=== PATIENT | male | born 1960 | race African-American/Black ===

== ENCOUNTER 2016-06-14 16:14 | Inpatient (IN) | payer SELFPAY ==
[~2016-06-14] VITALS: Ht 182.9 cm; Wt 87.5 kg
[2016-06-14] MEDS ORDERED: LEVETIRACETAM (500MG) 500 MG in IV NS 0.9% 100 ML IV ONE (16:30)
[2016-06-14] MEDS ORDERED: IV SET PRIMARY PUMP SET 1 EA INFUS.SET MC ONE (16:35)
[2016-06-14 16:48] LABS: BASOPHILS # (AUTO) 0.3 /CMM (0.0-0.2); BASOPHILS % (AUTO) 4.1 % (0.0-2.0); DIFF TOTAL % 100 %; EOSINOPHILS % (AUTO) 0.1 % (0.0-6.0); HEMATOCRIT 45 % (39-51); LYMPHOCYTES # (AUTO) 1.7 /CMM (0.8-4.8); LYMPHOCYTES % (AUTO) 26.6 % (20.0-44.0); MEAN CORPUSCULAR HEMOGLOBIN 28 PG (26.0-33.0); MEAN CORPUSCULAR HGB CONC 33 g/dl (31.0-36.0); MEAN CORPUSCULAR VOLUME 85 fL (80-96); MONOCYTES # (AUTO) 0.5 /CMM (0.1-1.30); NEUTROPHILS # (AUTO) 3.7 /CMM (1.8-8.9); NEUTROPHILS % (AUTO) 61.2 % (43.0-81.0); PLATELET COUNT (AUTO) 278 /CMM (150-450); RED BLOOD CELL COUNT(AUTO) 5.32 MIL/uL (4.5-6.0); WHITE BLOOD COUNT (AUTO) 6.2 K/uL (4.3-11.0)
[2016-06-14 16:56] LABS: ANION GAP 17 (5-14); CALCIUM, SERUM 8.2 mg/dL (8.5-10.1); CARBON DIOXIDE 23 mmol/L (21-32); CHLORIDE 104 mmol/L (98-107); CREATININE 1.2 mg/dL (0.6-1.3); GFR 63 mL/min (>60); GLUCOSE 115 mg/dL (74-106); POTASSIUM 4.2 mmol/L (3.5-5.1); SODIUM SERUM 140 mmol/L (136-145); UREA NITROGEN, BLOOD 9 mg/dL (7-18)
[2016-06-14 17:00] LABS: INR 1.04 (0.87-1.13); PROTHROMBIN TIME 10.9 SECS (9.5-12.7)
[2016-06-14 17:01] LABS: ALANINE AMINOTRANSFERASE 26 U/L (12-78); ALBUMIN 3.6 g/dL (3.4-5.0); ASPARTATE AMINOTRANSFERASE 19 U/L (15-37); BILIRUBIN,DIRECT 0.1 mg/dL (0.0-0.2); BILIRUBIN,TOTAL 0.3 mg/dL (0.2-1.0); INDIRECT BILIRUBIN 0.2 mg/dL (0.0-1.1); TOTAL PROTEIN, SERUM 7.4 g/dL (6.4-8.2)
[2016-06-14 17:06] LABS: CANNABINOID, URINE POSITIVE (NEGATIVE); PHENCYCLIDINE SCREEN,URINE NEGATIVE (NEGATIVE)
[2016-06-14] MEDS ORDERED: DEXAMETHASONE SOD PHOSPHATE 4 MG/ML VIAL IV ONE (19:00)
[2016-06-14 19:33] VITALS: BP 125/70
[2016-06-14 20:00] VITALS: BP 125/70
[2016-06-14] MEDS ORDERED: LORAZEPAM INJ 2 MG/ML VIAL IV PRN (21:30)
[2016-06-14] MEDS ORDERED: HYDROCODONE/APAP 5/325MG 1 EACH TABLET PO PRN (21:30)
[2016-06-14] MEDS ORDERED: ACETAMINOPHEN 325 MG TABLET PO PRN (22:30)
[2016-06-14] MEDS ORDERED: LORAZEPAM INJ 2 MG/ML VIAL ONE (22:44)
[2016-06-14] MEDS ORDERED: LORAZEPAM INJ 2 MG/ML VIAL IV ONE (23:00)
[2016-06-15] VITALS: BP 113/61
[2016-06-15] MEDS ORDERED: methylPREDNISolone SOD SUCC 125 MG/2ML VIAL IV SCH (02:00)
[2016-06-15] MEDS ORDERED: methylPREDNISolone SOD SUCC 40 MG/ML VIAL ONE (02:19)
[2016-06-15] MEDS ORDERED: methylPREDNISolone SOD SUCC 125 MG/2ML VIAL ONE (02:20)
[2016-06-15 04:00] VITALS: BP 114/75
[2016-06-15] MEDS ORDERED: IV NS 0.9% 100 ML IV ONE (04:08)
[2016-06-15] MEDS ORDERED: IV SET PRIMARY PUMP SET 1 EA INFUS.SET MC ONE (04:08)
[2016-06-15] MEDS ORDERED: LEVETIRACETAM (500MG) 500 MG/5 ML VIAL IV ONE (04:16)
[2016-06-15] MEDS: LEVETIRACETAM (500MG) 500 MG in IV NS 0.9% 100 ML IV SCH ×2 (04:31→15:13)
[2016-06-15] MEDS ORDERED: methylPREDNISolone SOD SUCC 40 MG/ML VIAL IV SCH (07:51)
[2016-06-15 07:53] LABS: ALBUMIN 3.5 g/dL (3.4-5.0); BILIRUBIN,TOTAL 0.5 mg/dL (0.2-1.0); CALCIUM, SERUM 8.6 mg/dL (8.5-10.1); CREATININE 0.9 mg/dL (0.6-1.3); POTASSIUM 4.2 mmol/L (3.5-5.1); TOTAL PROTEIN, SERUM 7.7 g/dL (6.4-8.2)
[2016-06-15 07:59] LABS: BASOPHILS % (AUTO) 0.1 % (0.0-2.0); DIFF TOTAL % 100 %; HEMATOCRIT 45 % (39-51); HEMOGLOBIN 14.9 g/dL (13.5-17.5); LYMPHOCYTES % (AUTO) 11.9 % (20.0-44.0); MEAN CORPUSCULAR HEMOGLOBIN 28 PG (26.0-33.0); MEAN CORPUSCULAR HGB CONC 33 g/dl (31.0-36.0); MEAN CORPUSCULAR VOLUME 85 fL (80-96); MONOCYTES % (AUTO) 0.1 % (2.0-12.0); NEUTROPHILS # (AUTO) 7.3 /CMM (1.8-8.9); NEUTROPHILS % (AUTO) 87.9 % (43.0-81.0); PLATELET COUNT (AUTO) 302 /CMM (150-450); RED BLOOD CELL COUNT(AUTO) 5.33 MIL/uL (4.5-6.0); WHITE BLOOD COUNT (AUTO) 8.3 K/uL (4.3-11.0)
[2016-06-15 08:00] VITALS: BP 117/69
[2016-06-15 08:02] LABS: THYROID STIMULATING HORMONE 0.433 uIU/mL (0.358-3.74)
[2016-06-15] MEDS: PANTOPRAZOLE 40 MG VIAL IV SCH (08:56)
[2016-06-15] MEDS ORDERED: IOHEXOL-300 100 ML VIAL IV ONE (11:50)
[2016-06-15] MEDS ORDERED: CT SWABBABLE VALVE TRANS SET 1 EA INFUS.SET MC ONE (11:50)
[2016-06-15] MEDS ORDERED: IV NS 0.9% 250 ML IV ONE (11:50)
[2016-06-15 12:20] VITALS: BP 134/69
[2016-06-15 12:29] LABS: URIC ACID 6.6 mg/dL (2.6-7.2)
[2016-06-15] MEDS: methylPREDNISolone SOD SUCC 40 MG/ML VIAL IV SCH ×2 (13:32→20:45)
[2016-06-15 16:00] VITALS: BP 130/86
[2016-06-15 16:49] LABS: KETONES,URINE 1+ (NEGATIVE); LEUKOCYTE ESTERASE ,URINE NEGATIVE (NEGATIVE)
[2016-06-15 16:55] LABS: ADD UA MICROSCOPIC YES
[2016-06-15 17:52] LABS: ADD URINE CULTURE NO; RBC,URINE 0-2 /HPF (0-2); WBC,URINE 0-2 /HPF (0-3)
[2016-06-15 20:00] VITALS: BP 135/87
[2016-06-16] VITALS: BP 128/86
[2016-06-16] MEDS: methylPREDNISolone SOD SUCC 40 MG/ML VIAL IV SCH ×4 (01:00→14:26)
[2016-06-16] MEDS: LEVETIRACETAM (500MG) 500 MG in IV NS 0.9% 100 ML IV SCH (03:50)
[2016-06-16 04:00] VITALS: BP 108/67
[2016-06-16 07:18] LABS: BASOPHILS # (AUTO) 0.1 /CMM (0.0-0.2); DIFF TOTAL % 100 %; HEMATOCRIT 46 % (39-51); HEMOGLOBIN 15.3 g/dL (13.5-17.5); LYMPHOCYTES # (AUTO) 1.5 /CMM (0.8-4.8); MEAN CORPUSCULAR HEMOGLOBIN 28 PG (26.0-33.0); MEAN CORPUSCULAR HGB CONC 33 g/dl (31.0-36.0); MEAN CORPUSCULAR VOLUME 85 fL (80-96); MONOCYTES # (AUTO) 3.7 /CMM (0.1-1.30); MONOCYTES % (AUTO) 30.8 % (2.0-12.0); NEUTROPHILS # (AUTO) 6.8 /CMM (1.8-8.9); NEUTROPHILS % (AUTO) 56.2 % (43.0-81.0); PLATELET COUNT (AUTO) 315 /CMM (150-450); RED BLOOD CELL COUNT(AUTO) 5.42 MIL/uL (4.5-6.0); WHITE BLOOD COUNT (AUTO) 12.2 K/uL (4.3-11.0)
[2016-06-16 07:24] LABS: CALCIUM, SERUM 9.1 mg/dL (8.5-10.1); PHOSPHORUS 3.8 mg/dL (2.5-4.9); POTASSIUM 4.2 mmol/L (3.5-5.1)
[2016-06-16 08:00] VITALS: BP 112/71
[2016-06-16 08:11] LABS: VIT D, 25-HYDROXY 17.4 ng/mL (30.0-100.0)
[2016-06-16] MEDS: PANTOPRAZOLE 40 MG VIAL IV SCH (08:42)
[2016-06-16 09:46] LABS: LYMPHOCYTES % (MANUAL) 15 % (16-48); PLATELET ESTIMATE ADEQUATE
[2016-06-16 09:47] LABS: ANISOCYTOSIS 1+
[2016-06-16 12:00] VITALS: BP_SYST 129; BP_SYST 130; BP_DIAS 61; BP_DIAS 80
[2016-06-16] MEDS ORDERED: LEVETIRACETAM (500MG) 500 MG in IV NS 0.9% 100 ML IV SCH (16:00)
[2016-06-16] MEDS ORDERED: GADOVERSETAMIDE 5 MMOL/10 ML VIAL IJ ONE (19:04)
[2016-06-16] MEDS ORDERED: LEVETIRACETAM (250 MG) 250 MG TABLET PO SCH (21:00)
== END 2016-06-16 19:05 | disposition left against medical advice (07) | DRG 100 ==
LOC: ER 16:17 → TELE1 18:41 → TELE-TD 06-15 11:02
PROVIDERS: ADMIT Internal Medicine; ATTEND Internal Medicine
DX: G40.909 Epilepsy, unspecified, not intractable, without status epilepticus (principal); G93.6 Cerebral edema; C71.9 Malignant neoplasm of brain, unspecified; F12.10 Cannabis abuse, uncomplicated; E04.1 Nontoxic single thyroid nodule; G93.89 Other specified disorders of brain
CPT/HCPCS: 36415; 70450-TC; 70553-TC; 71010-TC; 71270-TC; 72194-TC; 74170-TC; 80048-TC; 80053-TC; 80061-TC; 80076-TC; 80305; 81000-TC; 82306; 82378; 82542; 82962-TC; 83615-TC; 83735-TC; 84100-TC; 84153-TC; 84443-TC; 84484-TC; 84550-TC; 85025-TC; 85730-TC; 86301; 87040-TC; 87081-TC; 87086-TC; A4606; A9579; C9113; G0480; J1100; J1953; J2060; J2920; J2930; J7030; J7050; Q9967; Z7610